=== PATIENT | male | born 1990 | race Hispanic/Latino ===

== ENCOUNTER 2023-05-27 10:03 | Emergency (ER) | payer OTHER ==
[~2023-05-27] VITALS: Ht 182.9 cm; Wt 77.1 kg
[2023-05-27] MEDS ORDERED: KETOROLAC 30MG VIAL (30MG/ML) IM ONE (10:30)
[2023-05-27] MEDS ORDERED: IBUP-2070 PO (11:24)
[2023-05-27 12:02] VITALS: BP 137/75; PULSE 92; RESP 18; O2SAT 98
== END 2023-05-27 12:08 | disposition home or self-care (01) ==
LOC: EDH 10:03
DX: M79.672 Pain in left foot (principal)
CPT/HCPCS: 99283; 73630; 96372; J1885